=== PATIENT | male | born 1945 | race Caucasian/White ===

== ENCOUNTER → 2017-05-16 | Outpatient (CLI) | payer MEDICARE ==
[~2017-05-16] MED LIST: ACETAMINOPHEN500 MG PO; ALBU90OI6 INH; ALIGN PO; ALLERGY TAB PO; ASPI325 PO; ASPI81CH PO; ASPI81EC; ASPI81EC PO; Bentyl20 MG PO; CARI350 PO; CARV25; CARV3.125 PO; CETI10; CHOL10002 PO; CLOP75; COLE625 PO; CYAN500 PO; Co Q-10300 MG PO; DICY20 PO; DOXA2 PO; EQUATE PO; FAMO20 PO; GABA600; GEMF600; GEMF600 PO; GLUCO PO; HYDACE5 PO; IPRATROPIUM PO; KRILL OIL500 MG; KRILL OIL500 MG PO; LEVO750 PO; LEVSOD100 PO; LEVSOD112; LEVSOD200 PO; LIVALO2 MG; LIVALO2 MG PO; LOSA50 PO; LOSARTAN POTAS100 MG PO; LOVASA PO; MAGNESIUM PO; MELO7.5; METO50ER PO; MIST; MODA200 PO; MOMENI; MONT10T; MSM PO; MULVITA PO; MULVITMIND PO; Mucinex600 MG; NITR.4SL SL; NITRSPRAY SL; NUVIGIL PO; NUVIGIL150 MG PO; OMEG1CAP30 PO; OMEP20ER PO; OXYACE5T PO; PANT40 PO; POTASSIUM PO; PROBIOTIC1 EAC1 PO; PROM25 PO; ROBITUSSIN COU237 ML PO; ROSU10TA; RXOXYACE PO; TICA90TA; TRAM50; TYLENOL ARTHRITIS PO; Triderm30 GM; UBID100 PO; VITB100 PO; Zanaflex4 MG PO; [UNRECOGNIZED DRUG - OTHER]; [UNRECOGNIZED DRUG - OTHER] PO; [UNRECOGNIZED DRUG - OTHER] PO; [UNRECOGNIZED DRUG - OTHER] PO; [UNRECOGNIZED DRUG - REMARK] PO; [UNRECOGNIZED DRUG - REMARK] PO
== END | disposition home or self-care (01) ==
LOC: PLD 08:01 → LAB SHORT 08:01
DX: L72.0 Epidermal cyst (principal)
CPT/HCPCS: 88304

== ENCOUNTER → 2020-02-25 | Outpatient (CLI) | payer MEDICARE | END | disposition home or self-care (01) | LOC: LAB 13:51 → LAB SHORT 13:51 | DX: R30.9 Painful micturition, unspecified (principal) | CPT/HCPCS: 87086 ==

== ENCOUNTER → 2022-06-21 | Outpatient (CLI) | payer MEDICARE | END | disposition home or self-care (01) | LOC: LAB SHORT 11:39 → LAB 11:39 | DX: L21.8 Other seborrheic dermatitis (principal) | CPT/HCPCS: 87070 ==

== ENCOUNTER → 2024-06-20 | Outpatient (CLI) | payer MEDICARE ==
[~2024-06-20] MED LIST changes: +CLOP75 PO; +DEPO-TESTO200 MG/18 IM; +MYRBETRIQ50 MG PO; +Sanctura20 MG PO; +TAMSULOSIN HCL0.4 M1 PO
[2024-06-20 10:54] LABS: BASOPHILS ABSOLUTE AUTO 0.04 K/mm3 (0.00-0.23); BASOPHILS PERCENT AUTO 1 % (0-2); EOSINOPHILS ABSOLUTE AUTO 0.08 K/mm3 (0.00-0.68); EOSINOPHILS PERCENT AUTO 1 % (0-6); Hematocrit 45.2 % (37.0-53.0); Hemoglobin 15.1 g/dL (13.5-17.5); IMMATURE GRAN ABSOLUTE AUTO 0.02 K/mm3 (0.00-0.10); IMMATURE GRAN PERCENT AUTO 0 % (0-1); LYMPHOCYTES ABSOLUTE AUTO 1.57 K/mm3 (0.84-5.20); LYMPHOCYTES PERCENT AUTO 23 % (21-46); MONOCYTES ABSOLUTE AUTO 0.54 K/mm3 (0.16-1.47); MONOCYTES PERCENT AUTO 8 % (4-13); Mean Corpuscular HGB 30.3 pg (26.0-34.0); Mean Corpuscular HGB Conc 33.4 g/dL (31.5-36.5); Mean Corpuscular Volume 91 fL (80-100); Mean Platelet Volume 10.2 fL (9.1-12.4); NEUTROPHILS ABSOLUTE AUTO 4.72 K/mm3 (1.96-9.15); NEUTROPHILS PERCENT AUTO 68 % (41-73); Platelet Count 211 K/mm3 (150-400); RDW Standard Deviation 46.6 fL (35.1-46.3); Red Blood Cell Count 4.98 M/mm3 (4.30-5.90); White Blood Cell Count 6.97 K/mm3 (4.00-11.30)
[2024-06-20 11:06] LABS: Albumin, Blood 3.8 g/dL (3.4-5.0); Albumin/Globulin Ratio 1.2 (0.8-1.8); Bilirubin, Total 1.2 mg/dL (0.1-1.0); Bun/Creatinine Ratio 19.5 (12.0-20.0); Calcium, Blood 8.7 mg/dL (8.5-10.1); Creatinine, Blood 0.87 mg/dL (0.60-1.20); Globulin, Blood 3.2 g/dL (2.2-4.0); Potassium, Blood 3.5 mmol/L (3.5-5.5)
== END | disposition home or self-care (01) ==
LOC: LAB 10:50 → LAB SHORT 10:50
PROVIDERS: Physician Assistant
DX: M79.676 Pain in unspecified toe(s) (principal)
CPT/HCPCS: 80053; 84550; 85025

== ENCOUNTER → 2024-07-23 | Outpatient (CLI) | payer MEDICARE | LOC: LAB SHORT 17:50 → LAB 17:50 | DX: N39.0 Urinary tract infection, site not specified (principal) | CPT/HCPCS: 87077; 87086; 87186 ==

== ENCOUNTER → 2024-08-20 | Outpatient (CLI) | payer MEDICARE ==
[~2024-08-20] MED LIST changes: +8 HOUR ACETAMI650 MG; +AMLODIPINE BES2.5 MG PO; +CEFDINIR300 M4 PO; +CIPR500 PO; +FURO20 PO; +Flonase 0.05% N16 GM; +KRILL OIL PO; +LOSARTAN-HCTZ1 EACH PO; +REPATHA SU140 MG/1 M SC; +TAMS.4ER PO; +ZYRTEC10 M2 PO
== END ==
LOC: LAB 14:49 → LAB SHORT 14:49
DX: N39.0 Urinary tract infection, site not specified (principal)
CPT/HCPCS: 87077; 87086; 87186

== ENCOUNTER → 2024-11-21 | Outpatient (CLI) | payer MEDICARE ==
[2024-11-21 13:06] LABS: Source, Urine Clean Catch
[2024-11-21 15:01] LABS: Bilirubin, Urine Neg (Neg); Color, Urine Yellow (P-Yellow); Glucose Qualitative, Urine Neg (Neg); Ketones, Urine Neg (Neg); Leukocyte Esterase, Urine 2+ (Neg); Protein, Urine 1+ (Neg); Specific Gravity, Urine 1.015 (1.003-1.022); Urobilinogen, Urine NORM (Normal)
[2024-11-21 15:16] LABS: White Blood Cells, Urine TNTC /hpf (0-5)
== END ==
LOC: LAB 13:04 → LAB SHORT 13:04
PROVIDERS: Hospitalist
DX: N39.0 Urinary tract infection, site not specified (principal)
CPT/HCPCS: 81001; 87077; 87086; 87186